=== PATIENT | male | born 1990 | race Caucasian/White ===

== ENCOUNTER 2025-03-19 10:36 | Emergency (ER) | payer OTHER, SELFPAY ==
[2025-03-19 10:55] VITALS: BP 148/106
[2025-03-19 11:15] VITALS: BMI 30.4
[2025-03-19 11:18] VITALS: BP 145/94
--- NOTE | 2025-03-19 11:32 | EDRN ---
Pt changing into a gown for CXR.
[2025-03-19 11:55] LABS: COVID-19 Antigen Negative (Negative)
--- NOTE | 2025-03-19 12:39 | EDRN ---
Dante BARLOW w/ pt at this time.
--- NOTE | 2025-03-19 12:51 | ED.GENMED ---
History of Present Illness
General
Chief Complaint: Cold/Flu/URI Symptoms
Source: patient
Exam Limitations: none
Time Seen by Provider: 03/19/25 12:09
Nursing documentation reviewed up to this point in time: agreed with
History of Present Illness
History of Present Illness:
34-year-old male presenting to the emergency department today with concerns of cough fatigue chills nasal congestion over the past 2 days. Multiple people in his household had viral syndromes. Denies specific fevers chest pain.
Review of Systems
Review of Systems
Allergies reviewed?: Yes
All Other Systems: ROS reviewed and negative except as documented in HPI and ROS
Phy Exam
Physical Exam
Physical Exam:
GENERAL: Alert , in no apparent distress
EYE: pupils equal and reactive
NECK: Supple, no significant adenopathy.
ENT: o/p clr, mmm.
CARDIAC: Regular rate and rhythm .
LUNGS: Clear breath sounds bilaterally, no acute respiratory distress, no wheezes/rales/rhonchi
ABDOMEN: Soft, without focal tenderness, no r/g, no cvat
NEUROLOGICAL: Alert and oriented, no focal neuro deficits
SKIN: Warm and dry, skin intact.
MUSCULOSKELETAL: No edema, well perfused.
PSYCH: Normal and appropriate interaction.
Swollen boggy nasal turbinates, mild irritation to the posterior pharynx without significant tonsillar swelling
Course
Orders/Labs/Results
Orders:
Orders
03/19/25 11:28
COVID-19 Antigen Urgent
Source: Nasal Swab
Influenza A+B Rapid Molecular Urgent
MICHELLE Source: Nasal Swab
Specimen Description:
03/19/25 11:31
CR Chest - 2 Views Urgent
Comment:
Reason For Exam: SOB, Cough, Fatigue
Vital Signs
Initial and Last Documented VS:
Initial Vital Signs
Temp Pulse Resp BP Pulse Ox
98.7 F 86 18 148/106 97
03/19/25 10:55 03/19/25 10:55 03/19/25 10:55 03/19/25 10:55 03/19/25 10:55
Last Documented Vital Signs
Temp Pulse Resp BP Pulse Ox
98.1 F 80 16 145/94 97
03/19/25 11:18 03/19/25 11:18 03/19/25 11:18 03/19/25 11:18 03/19/25 12:54
MDM/Problems Addressed
MDM/Problems Addressed:
34-year-old male presenting to the emergency department today with concerns of cough fatigue achiness over the past 2 days. Here no signs of complications clear lungs chest x-ray normal COVID test negative. Vital signs normal. Patient no distress
tolerating by mouth. Patient with likely viral syndrome plan for outpatient management. Return precautions given.
*Pulse Oximetry
SaO2: 97
Oxygen Mode of Delivery: Room air
Patient hypoxic: no (97)
*Critical Care Note
Total Time (30-74mins, 75-104mins- exclusive of procedures): Not Applicable
ED Attending Note
-
Portions of this chart may have been created with voice recognition software.� Occasional wrong word or��sound alike� substitutions may have occurred due to the inherent limitations of voice recognition software.
Discharge Plan
Departure
Patient Disposition: Home (Routine Discharge)
Date of Disposition: 03/19/25
Time of Disposition: 12:52
Patient with high blood pressure during this ER visit?: No
Condition: Good
Covid-19: Not Applicable
Discharge Problem:
Acute viral syndrome
Instructions: Viral Syndrome (DC)
Referrals:
Selvin Guajardo MD [Family Provider, Gastroenterology]
Activity Restrictions/Additional Instructions:
You came to the emergency department today with concerns of symptoms consistent with a viral syndrome. Please rest as symptoms will hopefully improve over the next few days. Return for any worsening, new or concerning symptoms.
Interventions
Interventions:
*Risk Screen - Suicide Last Done: 03/19/25 10:55
*General Assessment Last Done: 03/19/25 11:15
*Neglect/Abuse Screening Last Done: 03/19/25 10:55
*ED- Fall Risk Assessment Last Done: 03/19/25 11:15
*ED COVID-19 Vaccine History Last Done: 03/19/25 11:15
ED- Pulmonary Assessment Last Done: 03/19/25 11:21
Discharge Date and Time
Print Language: HEBREW
== END 2025-03-19 13:10 | disposition home or self-care (01) ==
LOC: EMR 10:36
PROVIDERS: Emergency Medicine; EMERGENCY PHYSICIAN Emergency Medicine; FAMILY PHYSICIAN Internal Medicine Gastroenterology
DX: B34.9 Viral infection, unspecified (principal); Z11.52 Encounter for screening for COVID-19
CPT/HCPCS: 99284; 71046; 87502; 87811